=== PATIENT | female | born 1995 | race Caucasian/White ===

== ENCOUNTER → 2016-12-18 | Outpatient (CLI) | payer OTHER ==
--- NOTE | 2016-12-18 22:07 | MR ---
EXAMINATION TYPE: MR lumbar spine wo con DATE OF EXAM: 12/18/2016 9:36 PM COMPARISON: NONE HISTORY: Low back pain TECHNIQUE: T1 and T2 axial and sagittal images of the lumbar spine are submitted. FINDINGS: There is no abnormal signal seen within the visualized spinal cord or paraspinal soft tissu es. At L1-2 there is no disc herniation, canal stenosis, or foraminal encroachment. There is no evidence of degenerative disc disease. At L2-3 there is no disc herniation, canal stenosis, or foraminal encroachment. At L3-4 there is no disc herniation, canal stenosis, or foraminal encroachment. There is no evidence of degenerative disc disease. At L4-5 there is no disc herniation, canal stenosis, or foraminal encroachment. There is no evidence of degenerative disc disease. At L5-S1 there is no disc herniation, canal stenosis, or foraminal encroachment. There is no evidence of degenerative disc disease. IMPRESSION: 1. Slight scoliotic curvature with no evidence of degenerative disc disease, disc herniation, or yoshi l stenosis.
== END | disposition home or self-care (01) ==
LOC: RADMRIMAIN 20:59
PROVIDERS: ATTEND Nurse Practitioner Family
DX: M41.86 Other forms of scoliosis, lumbar region (principal)
CPT/HCPCS: 72148

== ENCOUNTER → 2017-05-26 | Outpatient (CLI) | payer OTHER ==
--- NOTE | 2017-05-26 14:41 | US ---
EXAMINATION TYPE: US OB <= 14 wk fetus DATE OF EXAM: 05/26/2017 COMPARISON: NONE CLINICAL HISTORY: Z36 Confirms dates. EXAM PERFORMED: Transabdominal (TA) EXAM MEASUREMENTS: GESTATIONAL AGE / DATING Dates by LMP: (9 weeks/1 days) EDC: 12/28/2017 Dates by Current Scan for: (9 weeks/3 days) EDC: 12/26/2017 MATERNAL ANATOMY Uterus: 9.7 x 9.1 x 8.6 cm Right Ovary: 3.2 x 2.0 x 1.8 cm Left Ovary: 2.6 x 1.2 x 0.9 cm Post CDS / Adnexa: no free fluid Presence of free fluid: no Presence of corpus luteal cyst: right ovarian lesion = 2.0 x 1.4 x 1.5 cm GESTATION / SURVEY CRL: 2.6 cm (9 weeks/3 days) MSD: Seen, not measured Yolk Sac (normal less than 6mm): 3.4 mm Heart Rate: 167 bpm Rhythm: Normal IUP: Viable IUP Date of LMP: 03/23/2017, Beta HcG (if available): not available Single live intrauterine gestation is present as gestational sac, yolk sac, and pole are seen. No free fluid is seen in pelvic cul-de-sac. Both ovaries are seen. Within right ovary there is 2.0 x 1.5 cm peripheral hypervascular lesion felt to reflect corpus luteal cyst. No suspicious extraovarian adnexal masses are noted bilaterally. Live single IUP measuring 9 weeks 3 days. IMPRESSION: Single live intrauterine gestation is confirmed, mean crown-rump length is 2.6 cm corresponding to 9 week 3 day old fetus.
== END | disposition home or self-care (01) ==
LOC: RADUSWWP 13:56
PROVIDERS: ATTEND Obstetrics & Gynecology
DX: Z36 Encounter for antenatal screening of mother (principal); Z3A.09 9 weeks gestation of pregnancy
CPT/HCPCS: 76801

== ENCOUNTER → 2017-07-28 | Outpatient (CLI) | payer OTHER ==
[2017-07-28 17:57] LABS: CH 30.3; CHCM 35.2; HCT 37.9 % (34.0-46.0); HDW 2.56; HGB 12.6 gm/dL (11.4-16.0); MCH 28.9 pg (25.0-35.0); MCHC 33.3 g/dL (31.0-37.0); MCV 86.7 fL (80.0-100.0); Mean Platelet Volume 7.6; RBC 4.37 m/uL (3.80-5.40); RDW 14.2 % (11.5-15.5); WBC 10.5 k/uL (3.8-10.6)
[2017-07-28 18:14] LABS: Glucose 73 mg/dL (74-99); Non-African American GFR(MDRD) >60 (>60 ml/min/1.73 sqM)
[2017-07-28 18:43] LABS: Hepatitis B Surface Ag Index 0.05
[2017-07-29 01:06] LABS: Treponemal Ab Non-Reactive (Non-Reactive)
[2017-07-30 04:47] LABS: Toxoplasma Antibody (IgG) <3.0 IU/mL (<7.2)
[2017-07-30 09:30] LABS: Alpha Fetoprotein 65.8 ng/mL; Alpha Fetoprotein (M.O.M) 1.51; B-HCG (M.O.M.) 2.06; Gestational Age (days) 1; Interpretation SeeBelow; Maternal Age at EDD (Yrs) 23; Smoker No; Unconjugated Estriol (M.O.M.) 0.97
== END | disposition home or self-care (01) ==
LOC: LABWHC1 17:27
PROVIDERS: ATTEND Obstetrics & Gynecology
DX: O26.812 Pregnancy related exhaustion and fatigue, second trimester (principal); Z3A.00 Weeks of gestation of pregnancy not specified
CPT/HCPCS: 36415; 82105; 82565; 82677; 82947; 84702; 85027; 86336; 86762; 86777; 86778; 86780; 86850; 86900; 86901; 87340; 87390

== ENCOUNTER 2017-09-27 20:21 | Outpatient (CLI) | payer OTHER ==
[2017-09-27 20:33] VITALS: BP 112/62; PULSE 99; RESP 16; TEMP 97
[2017-09-27 20:47] LABS: Amorphous Sediment,Urine Rare /hpf; Appearance,Urine Cloudy (Clear); Bilirubin,Urine Negative (Negative); Glucose,Urine (UA) Negative (Negative); Ketones,Urine Negative (Negative); Leukocyte Esterase,Urine Trace (Negative); Mucus,Urine Rare /hpf; Nitrite,Urine Negative (Negative); PH, Urine 6.5 (5.0-8.0); Particle Count 2928; Protein,Urine Negative (Negative); RBC,Urine <1 /hpf (0-5); Specific Gravity,Urine 1.015 (1.001-1.035); Squamous Epithelial Cell,Urine 2 /hpf (0-4); UA Billing (MACRO vs. MICRO) MICRO; Urobilinogen,Urine <2.0 mg/dL (<2.0); WBC,Urine 2 /hpf (0-5)
--- NOTE | 2017-09-29 08:42 | P.MSEPDOC ---
Presenting Problems - Arrival Data Date of Arrival on Unit: 09/27/17 Time of Arrival on Unit: 20:31 Mode of Transport: Ambulatory - Complaint OB-Reason for Admission/Chief Complaint: Pain Comment: Lower back and lower abdominal pain that started yesterday, patient thinks baby is "lower" Medical History - Information : 3 Para: 1 Term: 1 : 0 Abortions: Spontaneous or Elective: 1 Number of Living Children: 1 - Gestational Age Gestational Age by KAYLA (wks/days): 26 Weeks and 6 Days - History Complications: Smoker Review of Systems - Review of Systems Constitutional: No problems Breast: No problems ENT: No problems Cardiovascular: No problems Respiratory: No problems Gastrointestinal: No problems Genitourinary: No problems Musculoskeletal: No problems Neurological: No problems Skin: No problems Vital Signs - Temperature Temperature: 97.0 F Temperature Source: Temporal Artery Scan - Pulse Pulse Oximetery Pulse Rate: 99 Pulse Assessment Method: Pulse Oximetry - Respirations Respiratory Rate: 16 Oxygen Delivery Method: Room Air - Blood Pressure Sitting Blood Pressure: 112/62 Blood Pressure Mean: 78 Blood Pressure Source: Automatic Cuff Medical Screen Scoring (Pre) - Cervical Exam Dilation: Exam Deferred Effacement: Exam Deferred - Uterine Contractions Frequency: N/A Duration: N/A Intensity: N/A - Maternal Vital Signs Maternal Temperature: N/A Maternal Blood Pressure: N/A Signs of Preeclampsia: N/A Maternal Respirations: N/A - Pain Assessment Pain Location and Character: Lower, Back, Abdomen Pain Scale Used: Numeric (1 - 10) Pain Intensity: 6 Pain Description: Aching Pain Frequency: Constant Pain Duration: 24 Pain Duration Units: Hours Pain Behavior: Vocalization - Assessment Baseline FHR: 145 Heart Rate - NICHD Category: Category I (Normal) = 0 NST: Reactive Position: N/A Station: N/A - Total Score Total Score (Pre): 0 - Level of Risk Level of Risk: Low (0-5) Physician Notification (Pre) - Physician Notified Physician Notified Date: 09/27/17 Physician Notified Time: 20:38 Physician/Practitioner Notifed:: Dr. Darnell - Notification Comment Comment: Orders given to collect and send ua, collect ffn and check cervix, give patient a glass of water. Physician in department at 2140 given report on UA results, FHR and absence of contractions reviewed by physician, orders given to discharge home with instructions. Disposition - Disposition OB Disposition: Discharge to home, Written follow up instructions reviewed Discharge Date: 09/27/17 Discharge Time: 21:45 I agree with the RN Medical Screening Exam: Yes Risk & Benefit of care provided described in d/c instruction: Yes Diagnosis: PELVIC AND PERINEAL PAIN
== END 2017-09-27 21:45 | disposition home or self-care (01) ==
LOC: FBPOP 20:21
PROVIDERS: ATTEND Obstetrics & Gynecology
DX: O99.89 Other specified diseases and conditions complicating pregnancy, childbirth and the puerperium (principal); R10.2 Pelvic and perineal pain; Z3A.26 26 weeks gestation of pregnancy
CPT/HCPCS: 81001; G0463; 99213

== ENCOUNTER 2017-12-22 06:00 | Inpatient (IN) | payer OTHER ==
[2017-12-22] MEDS ORDERED: LIDOCAINE 1% (PF) 10 MG/ML (30 ML SDV) SQ PRN (06:53)
[2017-12-22] MEDS ORDERED: METHYLERGONOVINE 0.2 MG/ML 1 ML AMP IM PRN (06:53)
[2017-12-22] MEDS ORDERED: AMPICILLIN 2,000 MG in SODIUM CHLORIDE 0.9% 100 ML IVPB STA (06:53)
[2017-12-22] MEDS ORDERED: CARBOPROST TROMETHAMINE 250 MCG/ML 1 ML AMP IM PRN (06:53)
[2017-12-22] MEDS ORDERED: OXYTOCIN 10 UNIT/ML 1 ML VIAL IM PRN (06:53)
[2017-12-22] MEDS ORDERED: TERBUTALINE 1 MG/ML VIAL SQ PRN (06:53)
[2017-12-22] MEDS ORDERED: OXYTOCIN 20 UNITS/1000 ML NS 1,000 ML IV SCH (07:00)
[2017-12-22] MEDS: LACTATED RINGERS 1,000 ML IV SCH ×2 (07:00→14:25)
[2017-12-22 07:08] LABS: Basophils % (A) 0 %; Eosinophils # (A) 0.2 k/uL (0-0.7); Eosinophils % (A) 2 %; HGB 10.8 gm/dL (11.4-16.0); Hypochromasia Moderate; Lymphocytes # (A) 1.9 k/uL (1.0-4.8); Lymphocytes % (A) 18 %; MCH 24.5 pg (25.0-35.0); MCV 78.9 fL (80.0-100.0); Mean Platelet Volume 6.5; Monocytes # (A) 0.7 k/uL (0-1.0); Monocytes % (A) 7 %; Neutrophils # (A) 7.7 k/uL (1.3-7.7); Neutrophils % (A) 72 %; Platelet Count 381 k/uL (150-450); RBC 4.43 m/uL (3.80-5.40); RDW 13.9 % (11.5-15.5); WBC 10.7 k/uL (3.8-10.6)
--- NOTE | 2017-12-22 08:26 | P.HPOB ---
History of Present Illness H&P Date: 12/22/17 Chief Complaint: Induction of labor 22-year-old presents at 39 weeks and 1 day for induction of labor. Her cervix is 1-2 cm dilated, 80% effaced, and -1 station. She is zac irregularly. heart tones are 130-135 with moderate variability and reactive. On admission to the hospital she tells me that her first baby was "stuck" after the head came out and Dr. 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 The baby is 8 lbs. 7 oz. She had not totally. This anytime previously in her . I explained to her the risks have a previous shoulder dystocia and that this would indicate the need for a . We discussed in detail the risks of shoulder dystocia with possible shoulder injury, possible clavicular fracture, possible brachial plexus injury and what that means including permanent nerve damage and need for physical therapy and surgeries in the future. After careful consideration the patient wants to continue with induction of labor considering this baby is significantly smaller than the previous baby. If there are at any time signs that this is not progressing in a normal labor pattern we will consider at that time. In the very beginning of Her , she did tell me that her previous physician had said she may need a with further pregnancies. I did review the records from her previous delivery at [facility] and there was no mention of a shoulder dystocia, she did have a second-degree laceration Apgars were 8, 9 , weight was 8 lbs. 7 oz. Review of Systems All systems: negative Constitutional: Denies chills, Denies fever Eyes: denies blurred vision, denies pain Ears, nose, mouth and throat: Denies headache, Denies sore throat Cardiovascular: Denies chest pain, Denies shortness of breath Respiratory: Denies cough Gastrointestinal: Denies abdominal pain, Denies diarrhea, Denies nausea, Denies vomiting Genitourinary: Denies dysuria, Denies hematuria Musculoskeletal: Denies myalgias Integumentary: Denies pruritus, Denies rash Neurological: Denies numbness, Denies weakness Psychiatric: Denies anxiety, Denies depression Endocrine: Denies fatigue, Denies weight change Past Medical History Past Medical History: No Reported History Additional Past Medical History / Comment(s): Obstetric history: She has had 2 previous spontaneous abortions, one vaginal delivery, this is her fourth . Blood type is O+, amylase negative, hepatitis B negative, toxoplasmosis negative, negative quad screen, rubella immune, HIV nonreactive, treponema antibody negative. History of Any Multi-Drug Resistant Organisms: None Reported Past Surgical History: No Surgical Hx Reported Additional Past Surgical History / Comment(s): D and C Past Anesthesia/Blood Transfusion Reactions: No Reported Reaction Past Psychological History: ADD/ADHD Smoking Status: Current some day smoker Past Alcohol Use History: None Reported Past Drug Use History: None Reported - Past Family History Mother Family Medical History: Hypertension Additional Family Medical History / Comment(s): severe depression and anxiiety Medications and Allergies Home Medications Medication Instructions Recorded Confirmed Type Pnv No.95/Ferrous Fum/Folic AC 1 tab PO DAILY 09/27/17 12/22/17 History [ Multivitamin Tablet] Allergies Allergy/AdvReac Type Severity Reaction Status Date / Time No Known Allergies Allergy Verified 12/22/17 06:50 Exam Osteopathic Statement: *. No significant issues noted on an osteopathic structural exam other than those noted in the History and Physical/Consult. - Vital Signs Vital signs: Vital Signs Pulse Resp BP 12/22/17 07:11 96 16 111/60 Intake and Output 12/21/17 12/22/17 12/22/17 22:59 06:59 14:59 Other: Weight 74.389 kg 74.389 kg Patient Weight 12/23/17 06:59 Weight 74.389 kg Heart: Regular rate and rhythm Lungs: Clear to auscultation bilaterally Abdomen: Soft, nontender Extremities: Negative Homans sign Results Result Diagrams: 12/22/17 06:55 Abnormal Lab Results - Last 24 Hours (Table) 12/22/17 Range/Units 06:55 WBC 10.7 H (3.8-10.6) k/uL Hgb 10.8 L (11.4-16.0) gm/dL MCV 78.9 L (80.0-100.0) fL MCH 24.5 L (25.0-35.0) pg Assessment and Plan (1) Normal labor Current Visit: Yes Status: Acute Code(s): O80 - ENCOUNTER FOR FULL-TERM UNCOMPLICATED DELIVERY; Z37.9 - OUTCOME OF DELIVERY, UNSPECIFIED SNOMED Code(s ): 38387556 Plan: 1. Induction of labor with amniotomy and Pitocin 2. Antibiotics for GBS prophylaxis 3. Anticipate normal vaginal delivery
[2017-12-22 09:27] VITALS: BMI 27.3
[2017-12-22] MEDS ORDERED: BUTORPHANOL 1 MG/ML 1 ML VIAL IV PRN (11:33)
[2017-12-22] MEDS: AMPICILLIN 1,000 MG in SODIUM CHLORIDE 0.9% 50 ML IVPB SCH ×2 (11:52→19:46)
[2017-12-22] MEDS ORDERED: SODIUM CHLORIDE 0.9% 100 ML BAG ONE (14:29)
[2017-12-22] MEDS ORDERED: fentaNYL (PF) 50 MCG/ML 5 ML AMP ONE (14:29)
[2017-12-22] MEDS ORDERED: BUPIVACAINE (PF) 0.25% 30 ML VIAL ONE (14:29)
[2017-12-22] MEDS ORDERED: diphenhydrAMINE 25 MG CAP PO PRN (16:18)
[2017-12-22] MEDS ORDERED: BENZOCAINE/MENTHOL SPRAY 1 GM/SPRAY AEROSOL TOPICAL PRN (16:18)
[2017-12-22] MEDS ORDERED: diphenhydrAMINE 50 MG/ML 1 ML VIAL IVP PRN ×2 (16:18)
[2017-12-22] MEDS ORDERED: ZOLPIDEM 5 MG TAB PO PRN (16:18)
[2017-12-22] MEDS ORDERED: SIMETHICONE 80 MG CHEWABLE PO PRN (16:18)
[2017-12-22] MEDS ORDERED: LANOLIN CREAM 5 GM TUBE TOPICAL PRN (16:18)
[2017-12-22] MEDS ORDERED: diphenhydrAMINE 50 MG CAP PO PRN (16:18)
[2017-12-22] MEDS ORDERED: WITCH HAZEL 1 EACH MED..PAD TOPICAL PRN (16:18)
[2017-12-22] MEDS: SENNOSIDES-DOCUSATE SODIUM 1 EACH TAB PO SCH (20:25)
[2017-12-22] MEDS: IBUPROFEN 600 MG TAB PO PRN (20:39)
[2017-12-22] MEDS: ACETAMINOPHEN TAB 325 MG TAB PO PRN (23:23)
[2017-12-23] MEDS: IBUPROFEN 600 MG TAB PO PRN ×2 (04:03→17:23)
[2017-12-23] MEDS: ACETAMINOPHEN TAB 325 MG TAB PO PRN ×2 (07:47→12:15)
[2017-12-23 08:30] LABS: Basophils % (A) 0 %; Eosinophils # (A) 0.1 k/uL (0-0.7); Eosinophils % (A) 1 %; HCT 35.2 % (34.0-46.0); HGB 10.7 gm/dL (11.4-16.0); Hypochromasia Moderate; Lymphocytes # (A) 2.1 k/uL (1.0-4.8); Lymphocytes % (A) 19 %; MCH 24.3 pg (25.0-35.0); MCHC 30.3 g/dL (31.0-37.0); MCV 80.3 fL (80.0-100.0); Mean Platelet Volume 6.4; Monocytes # (A) 0.5 k/uL (0-1.0); Monocytes % (A) 4 %; Neutrophils # (A) 8.1 k/uL (1.3-7.7); Neutrophils % (A) 73 %; Platelet Count 345 k/uL (150-450); RBC 4.39 m/uL (3.80-5.40); RDW 14.3 % (11.5-15.5)
[2017-12-23 08:49] VITALS: RESP 15
--- NOTE | 2017-12-23 09:29 | P.PROBDLV ---
Vaginal Delivery Note - . Vaginal Delivery Note: 22-year-old presents at 39 weeks and 1 day for induction of labor. Her cervix is 1-2 cm dilated, 70% effaced, and -1 station. She is zac irregularly. heart tones 130-135 with moderate variability and reactive. Pitocin was started and antibiotics were started for GBS prophylaxis. Amniotomy was performed at 8:03 AM clear fluid noted. She progressed slowly throughout the day and was really uncomfortable she did get an epidural. Her cervix was completely dilated at 1546. She pushed, and delivered a viable female infant over intact perineum under epidural anesthesia at 1605. Head delivered OA, nuchal cord 1 easily reduced, anterior shoulder which was the right shoulder delivered gentle downward traction followed by posterior shoulder and rest of body. Nose and mouth bulb suctioned, cord clamped and cut , infant placed on mother's abdomen. Apgars 9,9 weight 7 lbs. 3 oz. Placenta delivered spontaneously, intact with three-vessel cord at 1609. Vagina, cervix , and perineum were inspected. First-degree midline laceration was repaired with 3-0 Vicryl. Estimated blood loss 150 mL. Mother and baby in stable condition.
--- NOTE | 2017-12-23 09:29 | P.DS ---
Providers Date of admission: 12/22/17 06:43 Expected date of discharge: 12/23/17 Attending physician: Aleena Darnell Primary care physician: Stated None - Discharge Diagnosis(es) (1) Normal labor Current Visit: Yes Status: Resolved (2) Normal vaginal delivery Current Visit: Yes Status: Acute Hospital Course: Patient presented for induction of labor. She underwent a normal vaginal delivery. Her course was uncomplicated. She'll be discharged home day #1 in stable condition to follow-up with me in 6 weeks. Plan - Discharge Summary New Discharge Prescriptions: New Ibuprofen [Motrin] 600 mg PO Q6HR PRN #30 tab PRN Reason: Mild Pain Or Fever >= 100.5 No Action Pnv No.95/Ferrous Fum/Folic AC [ Multivitamin Tablet] 1 tab PO DAILY Discharge Medication List Pnv No.95/Ferrous Fum/Folic AC [ Multivitamin Tablet] 1 tab PO DAILY [History] Ibuprofen [Motrin] 600 mg PO Q6HR PRN #30 tab 12/23/17 [Rx] Follow up Appointment(s)/Referral(s): Aleena Darnell DO [Doctor of Osteopathic Medicine] - 6 Weeks Discharge Disposition: HOME SELF-CARE
[2017-12-23] MEDS: SENNOSIDES-DOCUSATE SODIUM 1 EACH TAB PO SCH (10:11)
[2017-12-23 12:22] VITALS: BP 107/69
[2017-12-23 16:00] VITALS: PULSE 67; TEMP 98.4
== END 2017-12-23 17:27 | disposition home or self-care (01) | DRG 775 ==
LOC: 4FBP 06:43
PROVIDERS: ADMIT Obstetrics & Gynecology; ATTEND Obstetrics & Gynecology
PROC: 10E0XZZ Delivery of Products of Conception, External Approach (ICD-10-PCS; principal; 2017-12-22)
PROC: 10907ZC Drainage of Amniotic Fluid, Therapeutic from Products of Conception, Via Natural or Artificial Opening (ICD-10-PCS; 2017-12-22)
PROC: 0HQ9XZZ Repair Perineum Skin, External Approach (ICD-10-PCS; 2017-12-22)
PROC: 00HU33Z Insertion of Infusion Device into Spinal Canal, Percutaneous Approach (ICD-10-PCS; 2017-12-22)
PROC: 3E0R3NZ Introduction of Analgesics, Hypnotics, Sedatives into Spinal Canal, Percutaneous Approach (ICD-10-PCS; 2017-12-22)
DX: O99.824 Streptococcus B carrier state complicating childbirth (principal); F17.200 Nicotine dependence, unspecified, uncomplicated; O69.81X0 Labor and delivery complicated by cord around neck, without compression, not applicable or unspecified; O70.0 First degree perineal laceration during delivery; O99.334 Smoking (tobacco) complicating childbirth; Z82.49 Family history of ischemic heart disease and other diseases of the circulatory system; Z37.0 Single live birth; Z3A.39 39 weeks gestation of pregnancy; Z81.8 Family history of other mental and behavioral disorders
CPT/HCPCS: 85025; 88307

== ENCOUNTER → 2020-10-29 | Outpatient (CLI) | payer OTHER | END | disposition home or self-care (01) | LOC: LABWHC1 14:55 | PROVIDERS: ATTEND Obstetrics & Gynecology | DX: Z34.81 Encounter for supervision of other normal pregnancy, first trimester (principal) | CPT/HCPCS: 36415; 84702; 84703 ==

== ENCOUNTER → 2020-11-13 | Outpatient (CLI) | payer OTHER | END | disposition home or self-care (01) | LOC: LABWHC1 11:58 | PROVIDERS: ATTEND Obstetrics & Gynecology | DX: Z34.80 Encounter for supervision of other normal pregnancy, unspecified trimester (principal) | CPT/HCPCS: 36415; 84702 ==

== ENCOUNTER → 2020-12-18 | Outpatient (CLI) | payer OTHER ==
[2020-12-18 19:56] LABS: Prolactin 19.1 ng/mL (2.8-29.2)
[2020-12-18 20:04] LABS: HCG,Quantitative Serum <2.0 mIU/mL
== END | disposition home or self-care (01) ==
LOC: LABWHC1 11:35
PROVIDERS: ATTEND Obstetrics & Gynecology
DX: N92.6 Irregular menstruation, unspecified (principal)
CPT/HCPCS: 36415; 84146; 84439; 84443; 84479; 84702

== ENCOUNTER → 2021-02-26 | Outpatient (CLI) | payer OTHER | END | disposition home or self-care (01) | LOC: LABWHC1 13:45 | PROVIDERS: ATTEND Obstetrics & Gynecology | DX: N93.8 Other specified abnormal uterine and vaginal bleeding (principal) | CPT/HCPCS: 36415; 84702 ==

== ENCOUNTER → 2021-02-28 | Outpatient (CLI) | payer OTHER | END | disposition home or self-care (01) | LOC: LABWHC1 14:00 | PROVIDERS: ATTEND Obstetrics & Gynecology | DX: Z34.81 Encounter for supervision of other normal pregnancy, first trimester (principal); Z3A.00 Weeks of gestation of pregnancy not specified | CPT/HCPCS: 36415; 84702 ==

== ENCOUNTER → 2021-03-26 | Outpatient (CLI) | payer OTHER | END | disposition home or self-care (01) | LOC: LABWHC1 10:01 | PROVIDERS: ATTEND Obstetrics & Gynecology | DX: O20.0 Threatened abortion (principal); Z3A.00 Weeks of gestation of pregnancy not specified | CPT/HCPCS: 36415; 84702 ==

== ENCOUNTER → 2021-03-27 | Outpatient (CLI) | payer OTHER ==
--- NOTE | 2021-03-27 15:31 | US ---
EXAMINATION TYPE: Transabdominal DATE OF EXAM: 03/27/2021 10:29 AM COMPARISON: NONE CLINICAL HISTORY: Bleeding O46.91. Dates. One time of bleeding but has stopped. EXAM PERFORMED: Transvaginal (TV) and Transabdominal (TA) EXAM MEASUREMENTS: GESTATIONAL AGE / DATING Physician Established: Not yet established Dates by LMP (8 weeks/5 days) EDC: 11/01/2021 Dates by First Scan: No previous this is first scan Dates by Current Scan for 5 weeks/2 days) EDC: 11/25/2021 MATERNAL ANATOMY Uterus: 7.1 x 4.3 x 3.8 cm Right Ovary: 2.5 x 1.1 x 1.5 cm Left Ovary: 2.8 x 1.6 x 1.3 cm Post CDS / Adnexa: free fluid Presence of corpus luteal cyst: no Presence of subchorionic bleed: no GESTATION / SURVEY MSD: 1.1 cm (5 weeks/2 days) Yolk Sac (normal less than 6mm): 1.1 mm IUP: GS and YS visualized in endometrial canal Date of LMP: 01/25/21, Beta HcG (if available Not available at this time GS and YS visualized in endometrial canal. No identifiable CRL visualized. Fine echogenic echoes se en within gestational sac. IMPRESSION: 1. The gestational sac and yolk sac are visualized in the endometrial canal. However, no crown-rump l ength is visualized. There are echogenic material within the gestational sac. Mean sac diameter is 5 weeks and 2 days. Short-term continued follow-up with ultrasound and beta hCG are recommended. 2. Small amount of free fluid in the pelvis.
== END | disposition home or self-care (01) ==
LOC: RADUSWWP 09:46
PROVIDERS: ATTEND Obstetrics & Gynecology
DX: O46.91 Antepartum hemorrhage, unspecified, first trimester (principal); Z3A.01 Less than 8 weeks gestation of pregnancy
CPT/HCPCS: 76801; 76817

== ENCOUNTER → 2021-04-08 | Outpatient (CLI) | payer OTHER | END | disposition home or self-care (01) | LOC: LABWHC1 11:00 | PROVIDERS: ATTEND Obstetrics & Gynecology | DX: O20.0 Threatened abortion (principal); Z3A.00 Weeks of gestation of pregnancy not specified | CPT/HCPCS: 36415; 84702 ==

== ENCOUNTER → 2021-09-04 | Outpatient (CLI) | payer OTHER | END | disposition home or self-care (01) | LOC: LABWHC1 13:41 | PROVIDERS: ATTEND Obstetrics & Gynecology | DX: N92.6 Irregular menstruation, unspecified (principal) | CPT/HCPCS: 36415; 84702 ==

== ENCOUNTER → 2021-09-10 | Outpatient (CLI) | payer OTHER | END | disposition home or self-care (01) | LOC: LABWHC1 13:24 | PROVIDERS: ATTEND Obstetrics & Gynecology | DX: N92.6 Irregular menstruation, unspecified (principal) | CPT/HCPCS: 36415; 84702 ==

== ENCOUNTER 2022-04-15 00:46 | Outpatient (CLI) | payer OTHER ==
[2022-04-15 02:06] VITALS: BP 117/59; PULSE 92; RESP 16; TEMP 97.2
--- NOTE | 2022-04-15 06:32 | P.MSEPDOC ---
Presenting Problems - Arrival Data Date of Arrival on Unit: 04/15/22 Time of Arrival on Unit: 00:46 Mode of Transport: Ambulatory - Complaint OB-Reason for Admission/Chief Complaint: Possible Onset of Labor Comment: cx every 5-6 mins since 2199 Medical History - Information : 8 Para: 2 Term: 2 : 0 Abortions: Spontaneous or Elective: 5 Number of Living Children: 2 - Gestational Age Gestational Age by KAYLA (wks/days): 35 Weeks and 4 Days - History Complications: Smoker Comment: quit smoking on wednesday, vapes daily Review of Systems - Review of Systems Constitutional: No problems Breast: No problems ENT: No problems Cardiovascular: No problems Respiratory: No problems Gastrointestinal: No problems Genitourinary: No problems Musculoskeletal: No problems Neurological: No problems Skin: No problems Vital Signs - Temperature Temperature: 97.2 F Temperature Source: Temporal Artery Scan - Pulse Pulse Oximetery Pulse Rate: 92 Pulse Assessment Method: Pulse Oximetry - Respirations Respiratory Rate: 16 Oxygen Delivery Method: Room Air O2 Sat by Pulse Oximetry: 97 - Blood Pressure Right Arm Blood Pressure: 117/59 Blood Pressure Mean: 78 Blood Pressure Source: Automatic Cuff Medical Screen Scoring - Cervical Exam Dilation (cm): 0.5 Effacement (%): 50 Station: -2 Membranes: Intact - Uterine Contractions Frequency From (mins): 3 Frequency To (mins): 5 Duration From (seconds): 60 Duration To (seconds): 80 Intensity: Mild Resting: Soft to palpation - Assessment - Baby A Baseline FHR: 120 Heart Rate - NICHD Category: Category I (Normal) NST: Reactive Physician Notification - Physician Notified Physician Notified Date: 04/15/22 Physician Notified Time: 01:08 Physician: Carroll Spann New Order Received: Yes - Notification Comment Comment: Dr. Spann on unit, report given on maternal and status, compla ints of. contractions and possible leaking of fluid. Amnisure negative Pt was closed in the. office today. SVE currently is fingertip/thick. NST is reactive. Orders to watch pt for. 1 hour and recheck cervix. If unchanged, pt can be discharged home Maternal Triage Index - Maternal Triage Index Presenting for scheduled procedure w/no complaint: No - Stat/Priority 1 Stat Priority 1: No - Urgent/Priority 2 Urgent Priority 2: No - Prompt/Priority 3 Prompt Priority 3: Yes Criteria Met for Priority 3: 35 4/7 wks, contractions every 5-6 mins, possible ROM Disposition - Disposition OB Disposition: Discharge to home Discharge Date: 04/15/22 Discharge Time: 01:55 I agree with the RN Medical Screening Exam: Yes Case reviewed; plan agreed upon as documented in EMR&OBIX.: Yes Diagnosis: FALSE LABOR BEFORE 37 COMPLETED WEEKS OF GEST, THIRD TRI
== END 2022-04-15 01:55 | disposition home or self-care (01) ==
LOC: FBPOP 00:46
PROVIDERS: ATTEND Obstetrics & Gynecology
DX: O47.03 False labor before 37 completed weeks of gestation, third trimester (principal); O99.333 Smoking (tobacco) complicating pregnancy, third trimester; F17.290 Nicotine dependence, other tobacco product, uncomplicated; Z3A.35 35 weeks gestation of pregnancy
CPT/HCPCS: 59025; 84112; G0463; 99213

== ENCOUNTER 2022-04-24 14:51 | Inpatient (IN) | payer OTHER ==
[2022-04-24] MEDS ORDERED: TERBUTALINE 1 MG/ML VIAL SQ PRN (15:36)
[2022-04-24] MEDS ORDERED: LIDOCAINE 0.5% (PF) 5 MG/ML (50 ML SDV) SQ PRN (15:36)
[2022-04-24] MEDS ORDERED: METHYLERGONOVINE 0.2 MG/ML 1 ML AMP IM PRN (15:36)
[2022-04-24] MEDS ORDERED: CARBOPROST TROMETHAMINE 250 MCG/ML 1 ML AMP IM PRN (15:36)
[2022-04-24] MEDS ORDERED: OXYTOCIN 10 UNIT/ML 1 ML VIAL IM PRN (15:36)
[2022-04-24] MEDS ORDERED: BUTORPHANOL 1 MG/ML 1 ML VIAL IV PRN (15:38)
[2022-04-24] MEDS ORDERED: LACTATED RINGERS 1,000 ML IV SCH ×2 (15:45)
[2022-04-24] MEDS: OXYTOCIN 30 UNITS/500 ML NS 30 UNIT in SALINE 1 500ML.BAG IV SCH (16:00)
[2022-04-24 17:16] LABS: Basophils % (A) 0 %; Eosinophils # (A) 0.1 k/uL (0-0.7); Eosinophils % (A) 1 %; HCT 38.4 % (34.0-46.0); Lymphocytes # (A) 1.6 k/uL (1.0-4.8); Lymphocytes % (A) 16 %; MCH 30.4 pg (25.0-35.0); MCHC 33.8 g/dL (31.0-37.0); MCV 89.9 fL (80.0-100.0); Mean Platelet Volume 7.9; Monocytes # (A) 0.6 k/uL (0-1.0); Monocytes % (A) 6 %; Neutrophils # (A) 7.4 k/uL (1.3-7.7); Neutrophils % (A) 75 %; Platelet Count 276 k/uL (150-450); RBC 4.27 m/uL (3.80-5.40); RDW 13.7 % (11.5-15.5); WBC 9.8 k/uL (3.8-10.6)
--- NOTE | 2022-04-24 18:21 | P.HPOB ---
History of Present Illness H&P Date: 04/24/22 Chief Complaint: Spontaneous rupture of membranes This is a 26-year-old female 7 para 2 with an estimated date of confinement of 05/16/2022, estimated gestational age of 36-6/7 weeks, who presented to labor and delivery with complaints of spontaneous rupture membranes at 2 PM today. She states she was checked in the office on Wednesday by Dr. Darnell and had an "aggressive" cervical exam. Patient initially stated that Dr. Darnell stripped her membranes. care has been with Dr. Darnell and has been uncomplicated. labs: Group B streptococcus-negative One hour Glucola-86 Quad screen-negative Hepatitis B surface antigen-negative RPR-nonreactive Rubella-immune Blood type-O+ Antibody screen-negative HIV-nonreactive Hemoglobin-13.4 Random glucose-85 Obstetrical history: . History of 2 vaginal deliveries at term. History of several miscarriages. History of 2 D&Cs for miscarriages. Gynecologic history: She does have a history of oral herpes but no genital herpes. She also has a history of chlamydia treated in the past. Social history: She is single. She is unemployed. Review of Systems Constitutional: Denies chills, Denies fever Eyes: denies blurred vision, denies pain Ears, nose, mouth and throat: Denies headache, Denies sore throat Cardiovascular: Denies chest pain, Denies shortness of breath Respiratory: Denies cough Gastrointestinal: Reports abdominal pain (Contractions) Genitourinary: Reports pelvic pain, Reports Musculoskeletal: Reports low back pain Integumentary: Denies pruritus, Denies rash Neurological: Denies numbness, Denies weakness Psychiatric: Reports anxiety, Reports depression Past Medical History Past Medical History: No Reported History History of Any Multi-Drug Resistant Organisms: None Reported Past Surgical History: No Surgical Hx Reported Additional Past Surgical History / Comment(s): D&C 2 Past Anesthesia/Blood Transfusion Reactions: No Reported Reaction Past Psychological History: ADD/ADHD, Anxiety, Depression Smoking Status: Former smoker Past Alcohol Use History: Rare Additional Past Alcohol Use History / Comment(s): SMOKES < 1/2 PACK SINCE AGE 11 Past Drug Use History: None Reported - Past Family History Mother Family Medical History: Cancer, Hypertension Additional Family Medical History / Comment(s): severe depression and anxiiety Medications and Allergies Home Medications Medication Instructions Recorded Confirmed Type Vit No.180/Iron/Folic 1 tab PO DAILY 03/30/22 04/24/22 History [ Plus Tablet] Allergies Allergy/AdvReac Type Severity Reaction Status Date / Time No Known Allergies Allergy Verified 04/24/22 15:16 Exam Osteopathic Statement: *. No significant issues noted on an osteopathic structural exam other than those noted in the History and Physical/Consult. Vital Signs Temp Pulse Resp BP 04/24/22 16:00 97.0 F L 89 16 106/57 04/24/22 15:15 97.3 F L 95 16 111/63 Intake and Output 04/24/22 04/24/22 04/24/22 06:59 14:59 22:59 Other: Weight 68.946 kg HEENT: Within normal limits Heart: Regular rate and rhythm Lungs: Clear to auscultation bilaterally Abdomen: Cervix: 1 cm/60%/-2 station on arrival. Positive amnisure is noted with clear fluid noted. heart tones: Reactive with category 1 tracing Contractions: Irregular Extremities: Negative Homans Results Result Diagrams: 04/24/22 15:52 Assessment and Plan (1) 36 weeks gestation of Current Visit: Yes Status: Acute Code(s): Z3A.36 - 36 WEEKS GESTATION OF SNOMED Code(s): 80042986 (2) Spontaneous rupture of membranes Current Visit: Yes Status: Acute Code(s): TMA4704 - SNOMED Code(s): 139401805 Plan: Admission for early active labor. Oxytocin augmentation of labor. Expectant management. Epidural anesthesia if desired.
[2022-04-24] MEDS ORDERED: fentaNYL (PF) 50 MCG/ML 5 ML AMP ONE (20:34)
[2022-04-24] MEDS ORDERED: ROPIVACAINE 5MG/ML 20ML VIAL ONE (20:34)
[2022-04-24] MEDS ORDERED: SODIUM CHLORIDE 0.9% 100 ML BAG ONE (20:34)
--- NOTE | 2022-04-25 02:11 | P.PROBDLV ---
Vaginal Delivery Note - . Vaginal Delivery Note: The patient progressed to complete dilation after oxytocin augmentation of labor and epidural anesthesia. Once reaching complete, she began pushing. Infant's head came to a crown. With one further push, the 's head delivered across the perineum followed by the anterior shoulder. Nose and mouth were bulb suctioned at the perineum. A tight nuchal cord times one was doubly clamped and cut and reduced around the infant's head. Infant was then delivered completely and placed on mother's abdomen. A viable female was noted with scores of 7 at 1 minute and 8 at 5 minutes and weight of 6 lbs. 4 oz. Cord blood was obtained secondary to O+ blood type. Placenta delivered shortly thereafter, intact, with a three-vessel cord. Uterus contracted fairly well after oxytocin was given and uterine massage was carried out. A gloved hand was placed within the endometrial cavity and no further tissue was obtained. Next inspection of the perineum revealed a midline periurethral laceration. This area was anesthetized with 1% lidocaine and then sutured with 3-0 Vicryl suture in a running locked fashion. Estimated blood loss is approximately 150 mL's. Both mother and infant are in stable condition.
[2022-04-25] MEDS ORDERED: ZOLPIDEM 5 MG TAB PO PRN (02:53)
[2022-04-25] MEDS ORDERED: LANOLIN CREAM 5 GM TUBE TOPICAL PRN (02:53)
[2022-04-25] MEDS ORDERED: ACETAMINOPHEN TAB 325 MG TAB PO PRN (02:53)
[2022-04-25] MEDS ORDERED: HYDROCORTISONE 2.5% RECTAL CREAM 30 GM TUBE RECTAL PRN (02:53)
[2022-04-25] MEDS ORDERED: BENZOCAINE/MENTHOL SPRAY 1 GM/SPRAY AEROSOL TOPICAL PRN (02:53)
[2022-04-25] MEDS ORDERED: diphenhydrAMINE 25 MG CAP PO PRN (02:53)
[2022-04-25] MEDS ORDERED: SIMETHICONE 80 MG CHEWABLE PO PRN (02:53)
[2022-04-25] MEDS ORDERED: diphenhydrAMINE 50 MG CAP PO PRN (02:53)
[2022-04-25] MEDS: IBUPROFEN 600 MG TAB PO PRN ×3 (03:05→20:03)
[2022-04-25] MEDS: OXYTOCIN 30 UNITS/500 ML NS 30 UNIT in SALINE 1 500ML.BAG IV SCH (04:31)
[2022-04-25] MEDS: SENNOSIDES-DOCUSATE SODIUM 1 EACH TAB PO SCH ×2 (11:36→20:06)
--- NOTE | 2022-04-25 16:17 | P.DS ---
Providers Date of admission: 04/24/22 15:16 Expected date of discharge: 04/26/22 Attending physician: Aleena Darnell Primary care physician: Stated None - Discharge Diagnosis(es) (1) 36 weeks gestation of Current Visit: Yes Status: Acute (2) Spontaneous rupture of membranes Current Visit: Yes Status: Acute Hospital Course: This is a 26-year-old female 7 para 2 at 87-0/7 weeks who presented with spontaneous rupture membranes. She underwent oxytocin augmentation of labor and delivered vaginally a viable female with scores of 7 at 1 minute and 8 at 5 minutes and infant weight of 6 lbs. 4 oz. Her course has been uncomplicated. Lochia is decreasing. She is breast-feeding. Vital signs are stable. Abdomen is soft with fundus firm and nontender. Extremities show negative Homans. Impression is status post vaginal delivery day #0. Plan is to discharge home tomorrow morning. Routine instructions are given. She is advised follow-up with Dr. Darnell in 6 weeks. She is advised to call the office if she has any further questions or concerns prior to her appointment time. She has a breast pump on the way. She will be given a prescription for ibuprofen. Procedures: Oxytocin augmentation of labor Spontaneous vaginal delivery of a viable female infant on 04/25/2022 Patient Condition at Discharge: Stable Plan - Discharge Summary New Discharge Prescriptions: New Ibuprofen [Motrin] 600 mg PO Q6HR PRN #60 tab PRN Reason: Mild Pain (Scale 1 To 3) Continue Vit No.180/Iron/Folic [ Plus Vitamin-Mineral] 1 tab PO DAILY Discharge Medication List Vit No.180/Iron/Folic [ Plus Vitamin-Mineral] 1 tab PO DAILY 03/30/22 [History] Ibuprofen [Motrin] 600 mg PO Q6HR PRN #60 tab 04/25/22 [Rx] Follow up Appointment(s)/Referral(s): Aleena Darnell DO [Doctor of Osteopathic Medicine] - 6 Weeks Activity/Diet/Wound Care/Special Instructions: Instructions 1. Do not begin any exercise program for 3 weeks. 2. Do not resume sexual relations for 3 weeks or longer if uncomfortable. 3. You may take tub baths or showers at any time. 4. You may use tampons if desired after 3 weeks. 5. Keep the area of episiotomy (stitches) clean and dry. 6. If you are not nursing, wear a good fitting, supportive bra during the day and limit fluid intake for at least 1 week to prevent breast engorgement. 7. Call the office, [phone], within the next week to make appointment for your 6 week checkup if it has not already been made. 8. Report any of the following occurrences to the doctor promptly: a. Heavy, excessive bleeding b. Chills, fever c. Burning or frequency of urination d. Pain or redness and breasts if nursing e. Increasing pain or swelling in episiotomy (stitches). In addition to the above instructions, the following additional should be followed: 1. No heavy lifting or straining (exercising) until after 6 week checkup. 2. Keep abdominal incision clean and dry: You may wear a dressing if more comfortable. 3. Make office appointment for 10 days after going home or as instructed by her doctor. Discharge Disposition: HOME SELF-CARE
[2022-04-26 01:32] VITALS: RESP 16
[2022-04-26] MEDS: IBUPROFEN 600 MG TAB PO PRN ×2 (05:56→15:58)
[2022-04-26 08:07] LABS: Basophils % (A) 0 %; Eosinophils # (A) 0.2 k/uL (0-0.7); Eosinophils % (A) 2 %; HCT 34.5 % (34.0-46.0); HGB 11.4 gm/dL (11.4-16.0); Lymphocytes # (A) 1.7 k/uL (1.0-4.8); Lymphocytes % (A) 18 %; MCH 29.8 pg (25.0-35.0); MCHC 33.1 g/dL (31.0-37.0); MCV 90.3 fL (80.0-100.0); Monocytes # (A) 0.6 k/uL (0-1.0); Monocytes % (A) 6 %; Neutrophils # (A) 6.9 k/uL (1.3-7.7); Neutrophils % (A) 73 %; Platelet Count 227 k/uL (150-450); RBC 3.82 m/uL (3.80-5.40); RDW 13.4 % (11.5-15.5); WBC 9.4 k/uL (3.8-10.6)
[2022-04-26] MEDS: SENNOSIDES-DOCUSATE SODIUM 1 EACH TAB PO SCH ×2 (08:40→17:49)
[2022-04-26 17:18] VITALS: BP 110/70; PULSE 75; TEMP 97.6
== END 2022-04-26 18:12 | disposition home or self-care (01) | DRG 807 ==
LOC: FBPOP 14:51 → 4FBP 15:16
PROVIDERS: ADMIT Obstetrics & Gynecology; ATTEND Obstetrics & Gynecology
PROC: 3E0R3NZ Introduction of Analgesics, Hypnotics, Sedatives into Spinal Canal, Percutaneous Approach (ICD-10-PCS; 2022-04-24)
PROC: 00HU33Z Insertion of Infusion Device into Spinal Canal, Percutaneous Approach (ICD-10-PCS; 2022-04-24)
PROC: 10E0XZZ Delivery of Products of Conception, External Approach (ICD-10-PCS; principal; 2022-04-25)
PROC: 0UQMXZZ Repair Vulva, External Approach (ICD-10-PCS; principal; 2022-04-25)
DX: O69.1XX0 Labor and delivery complicated by cord around neck, with compression, not applicable or unspecified (principal); Z37.0 Single live birth; O71.82 Other specified trauma to perineum and vulva; Z3A.36 36 weeks gestation of pregnancy; Z28.310 Unvaccinated for COVID-19; Z79.899 Other long term (current) drug therapy; Z86.19 Personal history of other infectious and parasitic diseases; Z86.59 Personal history of other mental and behavioral disorders; Z87.891 Personal history of nicotine dependence; Z82.49 Family history of ischemic heart disease and other diseases of the circulatory system; Z81.8 Family history of other mental and behavioral disorders; Z80.9 Family history of malignant neoplasm, unspecified
CPT/HCPCS: 59025; 84112; 85025; 86850; 86900; 86901; 88307; 99213

== ENCOUNTER → 2023-07-13 | Outpatient (CLI) | payer OTHER ==
--- NOTE | 2023-07-13 09:15 | USB ---
Reason for Exam: Clinical finding. Patient History: Menarche at age 11. First Full-Term at age 17. Paternal aunt had breast cancer under age 50. Findings: The whole breast of both breasts, the axilla of both breasts and the retroareolar of both breasts were scanned. A complete US of all four quadrants of bilateral breasts, axilla, and retro-areolar region were reviewed. No solid or cystic masses are identified. Dense tissues are present throughout. No abnormality identified with particular attention to the right side 10:00 palpable site. Overall Assessment: Benign, BI-RAD 2 Management: Screening Mammogram of both breasts at age 39. Unless there is an indication to start sooner. Further clinical management of patient's benign bilateral milky nipple discharge. Additional further clinical management of any suspicious palpable abnormalities. Results were given to the patient verbally at the time of exam. Electronically signed and approved by: Gagan Collins M.D. Radiologist
--- NOTE | 2023-07-13 10:51 | MM ---
Reason for Exam: Clinical finding. Baseline mammogram. Indicated Problems: Lump or thickening of the right side for 1 Month(s). Patient History: Menarche at age 11. First Full-Term at age 17. Paternal aunt had breast cancer under age 50. Last menstrual period: 06/23/2023 Prior Study Comparison: Patient's first Mammogram. Tissue Density: The breast tissue is heterogeneously dense. This may lower the sensitivity of mammography. Findings: Analyzed By CAD. No significant mass, suspicious microcalcification, or other discrete abnormality is seen. Palpable marker placed along the right side of the breast. Overall Assessment: Incomplete: need additional imaging evaluation, BI-RAD 0 Management: Diagnostic Breast Ultrasound of both breasts. Electronically signed and approved by: Gagan Collins M.D. Radiologist
== END | disposition home or self-care (01) ==
LOC: RADMAMWWP 08:29
PROVIDERS: ATTEND Family Medicine
DX: N64.52 Nipple discharge (principal); N63.10 Unspecified lump in the right breast, unspecified quadrant; Z80.3 Family history of malignant neoplasm of breast
CPT/HCPCS: 77066; 76641; G0279; 77062

== ENCOUNTER 2023-08-19 08:31 | Day surgery (SDC) | payer OTHER ==
[2023-08-13 11:11] VITALS: BMI 24.1
--- NOTE | 2023-08-19 07:30 | P.HPOB ---
History of Present Illness H&P Date: 08/19/23 Chief Complaint: Family planning 27-year-old transfer laparoscopic tubal ligation. Review of Systems All systems: negative Constitutional: Denies chills, Denies fever Eyes: denies blurred vision, denies pain Ears, nose, mouth and throat: Denies headache, Denies sore throat Cardiovascular: Denies chest pain, Denies shortness of breath Respiratory: Denies cough Gastrointestinal: Denies abdominal pain, Denies diarrhea, Denies nausea, Denies vomiting Genitourinary: Denies dysuria, Denies hematuria Musculoskeletal: Denies myalgias Integumentary: Denies pruritus, Denies rash Neurological: Denies numbness, Denies weakness Psychiatric: Denies anxiety, Denies depression Endocrine: Denies fatigue, Denies weight change Past Medical History Past Medical History: No Reported History Additional Past Medical History / Comment(s): . History of Any Multi-Drug Resistant Organisms: None Reported Past Surgical History: No Surgical Hx Reported Additional Past Surgical History / Comment(s): D&C 2 Past Anesthesia/Blood Transfusion Reactions: No Reported Reaction Additional Past Anesthesia/Blood Transfusion Reaction / Comment(s): no hx blood transfusion Smoking Status: Former smoker - Past Family History Mother Family Medical History: Cancer, Hypertension Additional Family Medical History / Comment(s): severe depression and anxiety Medications and Allergies Home Medications Medication Instructions Recorded Confirmed Type HYDROcodone/APAP 5-325MG [[place] 1 tab PO BID PRN 08/13/23 08/13/23 History 5-325] Montelukast Sodium 10 mg PO HS 08/13/23 08/13/23 History Allergies Allergy/AdvReac Type Severity Reaction Status Date / Time No Known Allergies Allergy Verified 08/13/23 10:59 Exam Osteopathic Statement: *. No significant issues noted on an osteopathic structural exam other than those noted in the History and Physical/Consult. Heart: Regular rate and rhythm Lungs: Clear to auscultation bilaterally Abdomen: Soft, nontender Extremities: Negative Homans sign Assessment and Plan (1) Family planning Status: Acute Code(s): Z30.09 - ENCOUNTER FOR OTH GENERAL CNSL AND ADVICE ON CONTRACEPTION SNOMED Code(s): 043833776 Plan: 1. Laparoscopic tubal ligation
[~2023-08-19 08:31] MED LIST: DEXAMETHASONE SOD PHOSPHATE 4 MG/ML 1 ML VIAL IV ONE; LACTATED RINGERS 1,000 ML IV SCH; LIDOCAINE 1% (10MG/ML) FOR IV START INTRADERMA PRN; MIDAZOLAM 2 MG/2 ML VIAL IV PRN; ONDANSETRON 4 MG/2 ML VIAL IVP ONE; Pre Op ABX Message 1 EACH MISC MISCELLANE ONE
[2023-08-19] MEDS ORDERED: ESMOLOL 100 MG/10 ML VIAL ONE (09:25)
[2023-08-19] MEDS ORDERED: fentaNYL (PF) 50 MCG/ML 2 ML AMP ONE (09:25)
[2023-08-19] MEDS ORDERED: MIDAZOLAM 2 MG/2 ML VIAL ONE (09:25)
[2023-08-19] MEDS ORDERED: ROCURONIUM 10 MG/ML (5 ML VIAL) IV ONE (09:25)
[2023-08-19] MEDS ORDERED: NEOSTIGMINE 1 MG/ML 10 ML VIAL ONE (09:25)
[2023-08-19] MEDS ORDERED: LIDOCAINE 1% INJ 10MG/ML (20 ML MDV) ONE (09:25)
[2023-08-19] MEDS ORDERED: PROPOFOL 10 MG/ML 20 ML VIAL IV ONE (09:25)
[2023-08-19] MEDS ORDERED: SUCCINYLCHOLINE CHLORIDE 200 MG/10 ML VIAL IV ONE (09:25)
[2023-08-19] MEDS ORDERED: GLYCOPYRROLATE 0.2 MG/ML 2 ML VIAL ONE (09:25)
[2023-08-19] MEDS ORDERED: KETOROLAC 15 MG/ML 1 ML VIAL ONE (09:25)
[2023-08-19] MEDS ORDERED: BUPIVACAINE (PF) 0.25% 30 ML VIAL SQ ONE (09:30)
--- NOTE | 2023-08-19 10:21 | P.OP ---
Date of Procedure: 08/19/23 Preoperative Diagnosis: 1. family planning Postoperative Diagnosis: 1.family planning Procedure(s) Performed: laparoscopic tubal ligation Anesthesia: COURTNEY Surgeon: Aleena Darnell Estimated Blood Loss (ml): 3 IV fluids (ml): 200 Urine output (ml): 30 Pathology: none sent Condition: stable Disposition: floor Description of Procedure: Patient was taken to the operating room where general anesthesia was obtained without difficulty. She was prepped and draped in normal sterile fashion in the dorsal lithotomy position, legs placed in the Segundo stirrups. Bladder drained of all urine. Durham speculum placed in the vagina and the anterior lip the cervix was grasped with single-tooth tenaculum. The uterus is sounded to 7 cm and the kroner manipulator was placed. Attention was then turned to the abdomen and gloves were changed. A 10 mm infraumbilical incision was made the scalpel and 10 mm optical trocar was placed under direct visualization. A 5 mm suprapubic Incision was made and a 5 mm optical trocar was placed under direct visualization. Survey of the pelvis revealed normal uterus tubes and ovaries. The left fallopian tube was grasped with a Kleppinger and fulgurated 2-3 cm on this side in the ampullar portion. The right fallopian tube was grasped with a Kleppinger and fulgurated 2-3 cm in the ampullar portion. All instruments were then removed from the abdomen and vagina. The 10 mm infraumbilical incision was closed with 0 Vicryl and the fascial layer and then 4-0 Vicryl in a subcuticular fashion. The 5 mm incision was closed with 4-0 Vicryl in a subcuticular fashion. Patient tolerated procedure well, sponge and instrument counts correct 2 and she was taken to recovery room in stable condition.
--- NOTE | 2023-08-19 10:32 | XR ---
EXAMINATION TYPE: XR abdomen 1V DATE OF EXAM: 08/19/2023 Comparison: None Clinical History: 27-year-old female POSSIBLE FOREIGN BODY Findings: Mild to moderate stool burden. Pelvic phleboliths. Nonobstructive bowel gas pattern. 4 mm calcificati on right mid abdomen possible nonobstructive renal stone. No radiopaque foreign body identified in th e abdomen or pelvis. Impression: No retained sponge or metal foreign body identified in the abdomen or pelvis.
[2023-08-19] MEDS: HYDROmorphone 0.5 MG/0.5 ML SYRINGE IVP PRN ×2 (10:33→11:09)
[2023-08-19] MEDS ORDERED: droPERidol 5 MG/2 ML VIAL IVP ONE (10:44)
[2023-08-19 10:45] VITALS: RESP 18; TEMP 97.2
[2023-08-19 11:57] VITALS: BP 101/69; PULSE 74
== END 2023-08-19 12:37 | disposition home or self-care (01) ==
LOC: OR 08:31
PROVIDERS: ATTEND Obstetrics & Gynecology
DX: Z30.2 Encounter for sterilization (principal); Z98.890 Other specified postprocedural states; Z87.891 Personal history of nicotine dependence; Z82.49 Family history of ischemic heart disease and other diseases of the circulatory system; Z79.899 Other long term (current) drug therapy
CPT/HCPCS: 81025; 74018; 58670; J2250; J0330; J1100; J2710; J2405; J2001; J3010; J1885; J2704; J1170; J1790; J0665; J1805

== ENCOUNTER → 2024-05-19 | Outpatient (CLI) | payer OTHER ==
--- NOTE | 2024-05-21 10:05 | US ---
EXAMINATION TYPE: US kidneys/renal and bladder DATE OF EXAM: 05/19/2024 COMPARISON: NONE CLINICAL INDICATION: Female, 28 years old with history of Attn; Ureters; R31.9 HEMATURIA, UNSPECIFIED ; hematuria EXAM MEASUREMENTS: Right Kidney: 11.4 x 5.6 x 4.1 cm Left Kidney: 11.7 x 5.8 x 5.3 cm Right Kidney: echogenic focus seen sup pole measuring 0.6cm Left Kidney: No hydronephrosis or masses seen Bladder: wnl Bilateral Jets seen: yes Gallstones seen There is no evidence for hydronephrosis at this point in time. No masses are identified. The urin kristy bladder is anechoic. Bilateral ureteral jets are seen. IMPRESSION: Uncomplicated cholelithiasis. Right nonobstructing renal calculus.
== END | disposition home or self-care (01) ==
LOC: RADUSWWP 15:28
PROVIDERS: ATTEND Family Medicine
DX: R31.9 Hematuria, unspecified (principal); K80.20 Calculus of gallbladder without cholecystitis without obstruction; N20.0 Calculus of kidney
CPT/HCPCS: 76770

== ENCOUNTER → 2024-07-21 | Outpatient (CLI) | payer OTHER ==
--- NOTE | 2024-07-21 11:37 | XR ---
EXAMINATION TYPE: XR lumbar spine 2 or 3V DATE OF EXAM: 07/21/2024 CLINICAL HISTORY: pain TECHNIQUE: Three views of the lumbar spine are submitted. COMPARISON: None. FINDINGS: There are 5 lumbar type vertebral bodies identified. The lumbar spine shows satisfactory alignment w ithout evidence of acute fracture or dislocation. Vertebral body heights are within normal limits. Disc spaces are within normal limits. The overlying soft tissue appears unremarkable. IMPRESSION: No acute fracture or dislocation is seen in the lumbar spine. ICD 10 NO FRACTURE, INITIAL EVALUATION
== END | disposition home or self-care (01) ==
LOC: RADXRMAIN 11:07
PROVIDERS: ATTEND Podiatrist
DX: M54.17 Radiculopathy, lumbosacral region (principal)
CPT/HCPCS: 72100

== ENCOUNTER → 2024-08-18 | Outpatient (CLI) | payer OTHER ==
--- NOTE | 2024-08-18 09:36 | US ---
EXAMINATION TYPE: US abdomen complete DATE OF EXAM: 08/18/2024 COMPARISON: US Kidneys 05/19/2024 CLINICAL INDICATION: Female, 28 years old with history of K80.20 GALLSTONES R10.84 GENERAL ABD SOREN; G allstones seen on kidney ultrasound. TECHNIQUE: Grayscale and color Doppler imaging of the abdomen was performed. FINDINGS: EXAM MEASUREMENTS: Liver Length: 15.6 cm Gallbladder Wall: 0.18 cm CBD: 0.46 cm Spleen: 9.3 cm Right Kidney: 11.3 x 5.6 x 4.0 cm Left Kidney: 10.6 x 5.2 x 4.8 cm DIRECTOR NEW PRODUCT NOTES: Exam is limited due to gas. Pancreas: Portions seen appear wnl. Limited visibility of tail. Liver: Appears wnl Gallbladder: Multiple hyperechoic foci with posterior shadowing seen within the gallbladder. Evidence for sonographic Cho's sign: No CBD: Appears wnl Spleen: Appears wnl Right Kidney: *Hyperechoic focus seen upper pole: 0.6 x 0.5 x 0.5 cm. Left Kidney: Anechoic area seen laterally: 0.9 x 0.6 x 0.8 cm. Upper IVC: Appears wnl Abd Aorta: Appears wnl IMPRESSION: 1. Cholelithiasis. 2. Nonobstructing right-sided nephrolithiasis. 3. Left renal cyst. [facility], , 08/18/2024 9:34 AM
== END | disposition home or self-care (01) ==
LOC: RADUSWWP 08:15
PROVIDERS: ATTEND Family Medicine
CPT/HCPCS: 76700

== ENCOUNTER 2025-01-10 07:55 | Day surgery (SDC) | payer OTHER ==
[~2025-01-10 07:55] MED LIST changes: -DEXAMETHASONE SOD PHOSPHATE 4 MG/ML 1 ML VIAL IV ONE; -LACTATED RINGERS 1,000 ML IV SCH; -MIDAZOLAM 2 MG/2 ML VIAL IV PRN; -ONDANSETRON 4 MG/2 ML VIAL IVP ONE; -Pre Op ABX Message 1 EACH MISC MISCELLANE ONE; +droPERidol 2.5 MG/ML VIAL IVP ONE
[2025-01-10] MEDS ORDERED: INDOCYANINE GREEN 25 MG VIAL IV STA (08:13)
[2025-01-10] MEDS: SCOPOLAMINE 1 MG/72 HR PATCH TRANSDERM STA (08:18)
[2025-01-10] MEDS: LACTATED RINGERS 1,000 ML IV SCH (08:22)
[2025-01-10] MEDS: HEPARIN SODIUM,PORCINE 5,000 UNIT/ML 1 ML VIAL SQ STA (08:22)
[2025-01-10] MEDS: ONDANSETRON 4 MG/2 ML VIAL IVP ONE (08:22)
[2025-01-10] MEDS: DEXAMETHASONE SOD PHOSPHATE 4 MG/ML 1 ML VIAL IV ONE (08:22)
[2025-01-10] MEDS: IV FLUID CONTINUATION 1,000 ML IV ONE (08:28)
[2025-01-10] MEDS: MIDAZOLAM 2 MG/2 ML VIAL IV ONE (08:29)
[2025-01-10 08:43] LABS: Basophils % (A) 0 %; Eosinophils % (A) 0 %; HCT 36.6 % (34.0-46.0); HGB 11.7 gm/dL (11.4-16.0); Lymphocytes # (A) 1.6 k/uL (1.0-4.8); Lymphocytes % (A) 22 %; MCH 27.5 pg (25.0-35.0); MCHC 31.9 g/dL (31.0-37.0); MCV 86.4 fL (80.0-100.0); Monocytes # (A) 0.3 k/uL (0-1.0); Monocytes % (A) 4 %; Neutrophils # (A) 5.3 k/uL (1.3-7.7); Neutrophils % (A) 71 %; Platelet Count 303 k/uL (150-450); RBC 4.23 m/uL (3.80-5.40); RDW 13.2 % (11.5-15.5); WBC 7.5 k/uL (3.8-10.6)
[2025-01-10] MEDS ORDERED: SUCCINYLCHOLINE CHLORIDE 200 MG/10 ML VIAL IV ONE (09:01)
[2025-01-10] MEDS ORDERED: KETAMINE HCL IN 0.9 % NACL 50 MG/5 ML SYRINGE ONE (09:01)
[2025-01-10] MEDS ORDERED: LIDOCAINE 1% INJ 10MG/ML (20 ML MDV) ONE (09:01)
[2025-01-10] MEDS ORDERED: ROCURONIUM 10 MG/ML (5 ML VIAL) IV ONE (09:01)
[2025-01-10] MEDS ORDERED: PROPOFOL 10 MG/ML 20 ML VIAL IV ONE (09:01)
[2025-01-10] MEDS ORDERED: LABETALOL 5 MG/ML VIAL MDV ONE (09:01)
[2025-01-10] MEDS ORDERED: NEOSTIGMINE 1 MG/ML 10 ML VIAL ONE (09:01)
[2025-01-10] MEDS ORDERED: fentaNYL (PF) 50 MCG/ML 2 ML AMP ONE (09:01)
[2025-01-10] MEDS ORDERED: GLYCOPYRROLATE 0.2 MG/ML 2 ML VIAL ONE (09:01)
[2025-01-10] MEDS ORDERED: ESMOLOL 100 MG/10 ML VIAL ONE (09:01)
[2025-01-10 09:11] LABS: African American GFR (CKD) >90 (>60 ml/min/1.73 sqM); Anion Gap 8 mmol/L; Blood Urea Nitrogen 11 mg/dL (7-17); Calcium 8.6 mg/dL (8.4-10.2); Carbon Dioxide 30 mmol/L (22-30); Chloride 100 mmol/L (98-107); Glucose 78 mg/dL (74-99); Non-African American GFR(CKD) >90 (>60 ml/min/1.73 sqM); Potassium 3.6 mmol/L (3.5-5.1); Sodium 138 mmol/L (137-145)
[2025-01-10] MEDS: BUPIVACAINE (PF) 0.25% 30 ML VIAL SQ ONE ×2 (09:21)
--- NOTE | 2025-01-10 10:33 | P.OP ---
Date of Procedure: 01/10/25 Preoperative Diagnosis: Chronic cholecystitis Postoperative Diagnosis: Chronic cholecystitis Procedure(s) Performed: Robotic cholecystectomy Anesthesia: COURTNEY Surgeon: Rose Montes Pathology: other (Gallbladder and contents) Condition: stable Disposition: same day Indications for Procedure: 29-year-old female presented to the surgery clinic with complaint of on and off right upper quadrant pain and dull ache. She has been found to have cholelithiasis with concern for chronic cholecystitis. Plan is for robotic cholecystectomy. Risks, benefits and alternatives including risks of bleeding, infection and biliary injury were discussed with the patient. All questions answered prior to attending the operating suite. Operative Findings: Distended gallbladder Cholelithiasis Description of Procedure: Patient was brought to the operating suite and placed in supine position on the operating table. Sedation was provided by anesthesia and the patient underwent endotracheal intubation. The patient was then prepped and draped in regular sterile fashion. Infraumbilical incision was made and dissection was carried to the fascia. The fascia was incised and an 8 mm trocar was placed. Pneumoperitoneum was achieved. 2 additional 8 mm trocars were placed in the right upper quadrant and 1 in the left. Gallbladder was then retracted superiorly and laterally. Dissection was carried along the infundibulum towards the cystic duct. The cystic duct was skeletonized and anatomy was confirmed using ICG. Cystic artery was then visualized as well and critical view was obtained. 2 clips were placed proximally on the cystic duct and 1 was placed distally and the cystic duct was ligated. Similarly, 2 clips were placed proximally and cystic artery and 1 was placed distally and the cystic artery was ligated. Cautery was then used to dissect the gallbladder off of the gallbladder fossa. Hemostasis was maintained throughout the process with cautery. Gallbladder was then placed in an Endo Catch and removed from the abdomen. Right upper quadrant was examined and hemostasis was noted to be maintained with no bile leakage. The infraumbilical fascial incision site was then closed with 0 Vicryl suture in interrupted format using Gustavo-Shaka device. Pneumoperitoneum was released and all ports removed from the abdomen. All port sites were closed with 4-0 Vicryl subcuticular suture. Sterile dressing was applied. The patient was awakened in the operative suite and taken to postanesthesia care unit in stable condition.
[2025-01-10 10:37] VITALS: TEMP 97.4
[2025-01-10] MEDS: HYDROmorphone 0.5 MG/0.5 ML SYRINGE IVP PRN (10:54)
[2025-01-10] MEDS: LACTATED RINGERS 1,000 ML IV ONE (11:08)
[2025-01-10] MEDS: KETOROLAC 15 MG/ML 1 ML VIAL IVP STA (11:35)
[2025-01-10 11:55] VITALS: RESP 18
[2025-01-10] MEDS: HYDROcodone/APAP 10-325MG 1 EACH TAB PO ONE (12:12)
[2025-01-10 12:36] VITALS: BP 117/71; PULSE 78
== END 2025-01-10 13:04 | disposition home or self-care (01) ==
LOC: OR 07:55
PROVIDERS: ATTEND Surgery
DX: K80.10 Calculus of gallbladder with chronic cholecystitis without obstruction (principal); F32.A Depression, unspecified; F41.9 Anxiety disorder, unspecified; F90.9 Attention-deficit hyperactivity disorder, unspecified type; I49.9 Cardiac arrhythmia, unspecified; M25.569 Pain in unspecified knee; Z87.891 Personal history of nicotine dependence; Z79.899 Other long term (current) drug therapy
CPT/HCPCS: 47562; S2900; 80048; 81025; 85025; 88304